=== PATIENT | female | born 1950 | race Two or more races ===

== ENCOUNTER 2018-05-30 06:08 | Day surgery (SDC) | payer OTHER | END 2018-05-30 10:30 | disposition home or self-care (01) | LOC: AMB-ENDOS 06:08 | DX: D12.4 Benign neoplasm of descending colon (principal); D12.3 Benign neoplasm of transverse colon ==

== ENCOUNTER 2018-06-21 13:08 | Outpatient (CLI) | payer OTHER | END 2018-06-21 13:09 | disposition home or self-care (01) | LOC: RAD 13:08 | DX: D12.2 Benign neoplasm of ascending colon (principal); Z86.010 Personal history of colon polyps; K92.1 Melena ==

== ENCOUNTER 2018-06-30 07:41 | Inpatient (IN) | payer OTHER ==
[~2018-06-30] VITALS: Ht 157.5 cm; Wt 68.0 kg
[~2018-06-30 07:41] MED LIST: CATAPRES0.1 MG PO; LOSARTAN-HCTZ1 EAC1 PO; MYSOLINE50 MG PO; SERTRALINE HCL100 MG PO; VENLAFAXINE HCL75 MG PO; VERAPAMIL ER180 MG PO; ZOCOR40 MG PO
[2018-07-09] MEDS ORDERED: GAS RELIEF125 MG PO (10:34)
[2018-07-09] MEDS ORDERED: PEPCID20 MG PO (10:34)
[2018-07-09] MEDS ORDERED: HYOSCYAMINE0.125 M1 SL (10:34)
[2018-07-09] MEDS ORDERED: IMODIUM A-D2 M2 PO (10:34)
== END 2018-07-09 10:57 | disposition home or self-care (01) | DRG 330 ==
LOC: SURH 07-01 09:31 → O/R 07-01 09:31 → SURH 07-01 14:15 → SURG 07-01 18:14 → SURH 07-02 02:53
PROVIDERS: Surgery
PROC: 07TC4ZZ Resection of Pelvis Lymphatic, Percutaneous Endoscopic Approach (ICD-10-PCS; 2018-07-01)
PROC: 0DBU4ZZ Excision of Omentum, Percutaneous Endoscopic Approach (ICD-10-PCS; 2018-07-01)
PROC: 3E0F7GC Introduction of Other Therapeutic Substance into Respiratory Tract, Via Natural or Artificial Opening (ICD-10-PCS; 2018-07-01)
PROC: 0DTF4ZZ Resection of Right Large Intestine, Percutaneous Endoscopic Approach (ICD-10-PCS; principal; 2018-07-01 14:15)
PROC: 3E0336Z Introduction of Nutritional Substance into Peripheral Vein, Percutaneous Approach (ICD-10-PCS; 2018-07-07)
DX: D12.2 Benign neoplasm of ascending colon (principal); K56.0 Paralytic ileus; K91.89 Other postprocedural complications and disorders of digestive system; E88.2 Lipomatosis, not elsewhere classified; R59.0 Localized enlarged lymph nodes; J45.20 Mild intermittent asthma, uncomplicated; F17.210 Nicotine dependence, cigarettes, uncomplicated; F32.89 Other specified depressive episodes; E78.00 Pure hypercholesterolemia, unspecified; E11.9 Type 2 diabetes mellitus without complications; I11.9 Hypertensive heart disease without heart failure; G89.18 Other acute postprocedural pain

== ENCOUNTER 2021-03-24 08:24 | Day surgery (SDC) | payer OTHER ==
[~2021-03-24 08:24] MED LIST changes: +GAS RELIEF125 MG PO; +HYOSCYAMINE0.125 M1 SL; +IMODIUM A-D2 M2 PO; +PEPCID20 MG PO
== END 2021-03-24 12:45 | disposition home or self-care (01) ==
LOC: AMB-ENDOS 08:24
PROVIDERS: ATTEND Surgery
DX: D12.3 Benign neoplasm of transverse colon (principal); D12.4 Benign neoplasm of descending colon; Z20.822 Contact with and (suspected) exposure to COVID-19

== ENCOUNTER 2022-12-22 21:59 | Inpatient (IN) | payer OTHER ==
[~2022-12-22] VITALS: Ht 157.5 cm; Wt 54.9 kg
--- NOTE | 2022-12-22 22:08 | NUR ---
PTE ALERTA Y ORIENTADA X 3 ESFERAS RECIBIDA EN AMBULANCIA QUIEN REFIERE DOLOR EN LA RT AREA PELVICA Y ANAL QUE SE IRRADIA A AREA EPIGASTRICA.PARAMEDICO REFIERE VOMITOS X 3.
--- NOTE | 2022-12-22 22:29 | NUR ---
PACIENTE REEVALUADA POR EL DR. FREGOSO QUIEN ORDENA TRATAMIENTO MEDICO. AMANDA MORSE REALIZA MUESTRAS BAJO MEDIDAS ASEPTICAS Y ADMINISTRA MEDICAMENTOS ALYX ORDEN. SE ESPERA POR CT PEND.
[2022-12-22] MEDS ORDERED: KEPPRA500 MG (22:39)
[2022-12-22] MEDS ORDERED: GLUMETZA500 MG (22:40)
[2022-12-22] MEDS ORDERED: ATACAND4 MG (22:40)
[2022-12-22] MEDS ORDERED: FELDENE10 MG (22:40)
[2022-12-22] MEDS ORDERED: CLONAZEPAM1 MG (22:40)
[2022-12-22] MEDS ORDERED: CRESTOR5 MG (22:41)
[2022-12-22] MEDS ORDERED: INDERAL LA80 MG (22:41)
[2022-12-22] MEDS ORDERED: PROPRANOLOL HCL10 MG (22:41)
--- NOTE | 2022-12-23 01:00 | NUR ---
SE RECIBE PTE ALERTA Y ORIENTADA X3, PTE INDICA QUE AL MOMENTO ESTA SASCHA DE DOLOR. IV PATENTE Y SASCHA DE EDEMA Y ERITEMA CON UN 0.9 DE NSS. PTE PENDIENTE A CT ABD/PELVICO SE HACE SEGUIMIENTO CON PERSONAL DE TURNO PARA EL PROCEDIMIENTO. PTE UBICADA EN JOSE LUIS.
--- NOTE | 2022-12-23 02:43 | NUR ---
SE COLOCA TUBO NGT #16 EN FOSA NASAL IZQUIERDA ALYX ORDEN MEDICA Y SIGUIENDO MEDIDAS ASEPTICAS, PTE TOLERA PROCEDIMIENTO ELIMINANDO 200ML COLOR ZACH. SE CONECTA A SUCCION INTERMITENTE (LIS) ALYX ORDEN MEDICA. SE COLOCA FOLLEY #16 SIGUIENDO MEDIDAS ASEPTICAS Y ESTERILES, EGRESO APROXIMADO DE 200ML COLOR AMARILLO TAURUS TURBIO.
--- NOTE | 2022-12-23 07:10 | NUR ---
SE RECIBE PTE ALERTA ORIENTADA X3 EN JOSE LUIS CON BARANDAS ELEVADAS POR VENTURA SEGURIDAD.VENOPUNCION PATENTE SASCHA DE EDEMA Y ERITEMA RECIBIENDO 0.9 NSS BAJANDO A 80ML/HR.NASOGASTRICO A LIS.SONDA URINARIA A GRAVEDAD.CONSULTADA CON DR.NICOLAS LOZOYA.PENDIENTE A ADMISION.
--- NOTE | 2022-12-23 09:20 | NUR ---
A LAS 8:00AM PASA VISITA EL DR. SHERLY LOZOYA Y REFIERE DEJAR TUBO NASOGASTRICO PARA VERIFICAR CUANTO DRENA.
--- NOTE | 2022-12-23 09:22 | NUR ---
DR. BLUM ORDENA REMOVER TUBO NASOGATRICO PORQUE LA PACIENTE NO ESTA OBSTRUIDA.
[2022-12-23] MEDS ORDERED: CITALOPRAM HBR20 MG (14:53)
[2022-12-23] MEDS ORDERED: ESTAZOLAM1 MG (14:54)
[2022-12-23] MEDS ORDERED: TRIAMTERENE-HC1 EAC3 (14:54)
[2022-12-23] MEDS ORDERED: LOSARTAN POTAS100 MG (14:54)
== END 2022-12-28 18:23 | disposition home or self-care (01) | DRG 392 ==
LOC: ER 21:59 → MEDI 12-23 11:54 → SEC-K 12-23 11:54 → MEDI 12-23 12:07
PROVIDERS: ADMIT Internal Medicine; ATTEND Internal Medicine
DX: K52.89 Other specified noninfective gastroenteritis and colitis (principal); N39.0 Urinary tract infection, site not specified; N17.9 Acute kidney failure, unspecified; K90.49 Malabsorption due to intolerance, not elsewhere classified; E86.0 Dehydration; E87.6 Hypokalemia; B96.1 Klebsiella pneumoniae [K. pneumoniae] as the cause of diseases classified elsewhere; I10 Essential (primary) hypertension; E11.9 Type 2 diabetes mellitus without complications; Z79.4 Long term (current) use of insulin; F17.200 Nicotine dependence, unspecified, uncomplicated; G25.3 Myoclonus